=== PATIENT | male | born 1935 | race Caucasian/White ===

== ENCOUNTER → 2020-10-31 | Outpatient (CLI) | payer OTHER ==
--- NOTE | 2020-11-07 09:35 | ECHO ---
ECHOCARDIOGRAM DATE OF PROCEDURE: 10/31/2020 Age: 85 Gender: Male Height: Weight: REFERRING PHYSICIAN: DOMENICO Matias. REASON FOR STUDY: Valvular heart disease, mitral regurgitation. PATIENT LOCATION: Outpatient. 2D MEASUREMENTS: IVS 1.4 cm LV 4.8 cm LVPW 1.3 cm LA 3.4 cm Aorta 3.8 cm 2D COMMENTS: 1. Mildly increased left ventricular wall thickness with normal left ventricular size and normal global left ventricular systolic function. The estimated left ventricular systolic ejection fraction is 60% to 65%. 2. Subjectively, the left atrium and the right atrium appear to be mildly enlarged. Normal right ventricle. 3. The atrial septum appeared to be normal without evidence of defect or shunt. 4. Mildly dilated aortic root at 3.8 cm. 5. Mildly calcified aortic valve with normal leaflet excursion. Mildly calcified mitral annulus with normal anterior mitral valve leaflet motion. Normal tricuspid valve and pulmonic valve. The proximal pulmonary artery branches were not well visualized. 6. The inferior vena cava was not visualized. DOPPLER: Detects mild mitral regurgitation, trace tricuspid regurgitation, and trace pulmonic regurgitation. Pulmonary artery systolic pressure was normal. Assessment of the left ventricular diastolic function was limited in view of underlying atrial fibrillation. IMPRESSION: 1. Normal global left ventricular systolic function with mild concentric left ventricular hypertrophy and a normal global left ventricular systolic function. Assessment of the left ventricular diastolic function was limited in view of the underlying atrial fibrillation. 2. Aortic valve sclerosis without stenosis or aortic regurgitation. 3. Mitral annular calcification with mild mitral regurgitation. 4. Mild tricuspid regurgitation with a normal calculated pulmonary artery systolic pressure. 5. Mildly dilated aortic root at 3.8 cm. 0
== END ==
LOC: M CARPUL 13:04
PROVIDERS: ATTEND Nurse Practitioner Family
DX: I34.0 Nonrheumatic mitral (valve) insufficiency (principal); I36.1 Nonrheumatic tricuspid (valve) insufficiency

== ENCOUNTER → 2021-02-06 | Outpatient (CLI) | payer OTHER ==
[~2021-02-06] MED LIST: ATOR40TA75 PO; COLA100C5 PO; DIGO0.123 PO; ECOT81TA5 PO; ERYT2GEL OU; ISOS1TAB36 PO; K-TA10TA2 PO; LANTINJ4 SC; METO25TA4 PO; NITR0.4S14 SL; NOVOINJ SC; OMEP10CASR PO; PRESCAP PO; QUET50TA4 PO; THIA100TA PO; VITMTA PO
== END ==
LOC: M LABSMTC 11:53
PROVIDERS: ATTEND Anesthesiology
DX: Z01.812 Encounter for preprocedural laboratory examination (principal); Z20.822 Contact with and (suspected) exposure to COVID-19

== ENCOUNTER 2021-02-11 06:49 | Day surgery (SDC) | payer OTHER ==
[~2021-02-11] VITALS: Ht 172.7 cm; Wt 78.0 kg
[~2021-02-11 06:49] MED LIST changes: +NS 1,000 ML IV ONE
[2021-02-11] MEDS ORDERED: LIDOCAINE 2% 100MG/5ML SDV (FOR ANES.) As Ordered ONE (07:01)
[2021-02-11] MEDS ORDERED: propofoL 200 MG/20 ML VIAL As Ordered ONE (07:01)
--- NOTE | 2021-02-11 07:59 | ROOR ---
Patient Name: Ramsey Segovia Procedure Date: 02/11/2021 7:40 AM Date of : 1935 Age: 86 Room: [facility] Gender: Male Note Status: Finalized Procedure: Upper GI endoscopy Indications: Dysphagia Providers: DO Aliza Fox MD: Thu Mezaler Requesting Provider: Medicines: Propofol per Anesthesia Complications: No immediate complications. Procedure: Pre-Anesthesia Assessment: - Prior to the procedure, a History and Physical was performed, and patient medications and allergies were reviewed. The patient is competent. The risks and benefits of the procedure and the sedation options and risks were discussed with the patient. All questions were answered and informed consent was obtained. Patient identification and proposed procedure were verified by the physician, the nurse, the director of informatics and the mosaic technician in the endoscopy suite. Mental Status Examination: alert and oriented. Airway Examination: normal oropharyngeal airway and neck mobility. Respiratory Examination: clear to auscultation. CV Examination: normal. Prophylactic Antibiotics: The patient does not require prophylactic antibiotics. Prior Anticoagulants: The patient has taken no previous anticoagulant or antiplatelet agents. ASA Grade Assessment: II - A patient with mild systemic disease. After reviewing the risks and benefits, the patient was deemed in satisfactory condition to undergo the procedure. The anesthesia plan was to use monitored anesthesia care (MAC). Immediately prior to administration of medications, the patient was re-assessed for adequacy to receive sedatives. The heart rate, respiratory rate, oxygen saturations, blood pressure, adequacy of pulmonary ventilation, and response to care were monitored throughout the procedure. The physical status of the patient was re-assessed after the procedure. The Endoscope was introduced through the mouth, and advanced to the second part of duodenum. The upper GI endoscopy was accomplished without difficulty. The patient tolerated the procedure well. Findings: Diffuse mild inflammation characterized by congestion (edema), erosions, erythema, friability and granularity was found in the entire examined stomach. Biopsies were taken with a cold forceps for Helicobacter pylori testing. Estimated blood loss was minimal. Impression: - Gastritis. Biopsied. Recommendation: - Patient has a contact number available for emergencies. The signs and symptoms of potential delayed complications were discussed with the patient. Return to normal activities tomorrow. Written discharge instructions were provided to the patient. - Return to physician anesthesia assistant at appointment to be scheduled. - Await pathology results. Procedure Code(s): --- Professional --- 76011, Esophagogastroduodenoscopy, flexible, transoral; with biopsy, single or multiple Diagnosis Code(s): --- Professional --- K29.70, Gastritis, unspecified, without bleeding R13.10, Dysphagia, unspecified CPT copyright 2019 [employer]. All rights reserved. The codes documented in this report are preliminary and upon superintendent automotive review may be revised to meet current compliance requirements. Aaron Castellanos DO 02/11/2021 7:58:28 AM Electronically signed by Aaron Castellanos DO Number of Addenda: 0 Note Initiated On: 02/11/2021 7:40 AM Estimated Blood Loss: Estimated blood loss was minimal.
[2021-02-11 08:32] VITALS: BP 174/86
== END 2021-02-11 08:34 | disposition home or self-care (01) ==
LOC: M OPP 06:49
PROVIDERS: ATTEND Surgery
DX: K29.70 Gastritis, unspecified, without bleeding (principal); R13.10 Dysphagia, unspecified; R11.2 Nausea with vomiting, unspecified; E11.9 Type 2 diabetes mellitus without complications; D64.9 Anemia, unspecified; Z79.4 Long term (current) use of insulin; Z79.82 Long term (current) use of aspirin; Z79.899 Other long term (current) drug therapy; Z79.2 Long term (current) use of antibiotics; Z88.2 Allergy status to sulfonamides

== ENCOUNTER → 2022-01-26 | Outpatient (REF) | payer OTHER ==
[~2022-01-26] MED LIST changes: -NS 1,000 ML IV ONE
== END ==
LOC: M SFHCDERM 08:59
PROVIDERS: ATTEND Nurse Practitioner Family
DX: C44.319 Basal cell carcinoma of skin of other parts of face (principal); L57.0 Actinic keratosis

== ENCOUNTER → 2022-04-29 | Outpatient (REF) | payer OTHER | LOC: M SFHCDERM 14:15 | PROVIDERS: ATTEND Dermatology | DX: L57.8 Other skin changes due to chronic exposure to nonionizing radiation (principal) ==

== ENCOUNTER → 2022-11-18 | Outpatient (REF) | payer OTHER ==
[~2022-11-18] MED LIST changes: -K-TA10TA2 PO; +POTA-165 PO
== END ==
LOC: M SFHCDERM 17:34
PROVIDERS: ATTEND Physician Assistant
DX: C44.42 Squamous cell carcinoma of skin of scalp and neck (principal); D04.61 Carcinoma in situ of skin of right upper limb, including shoulder; C44.612 Basal cell carcinoma of skin of right upper limb, including shoulder

== ENCOUNTER → 2023-03-16 | Outpatient (REF) | payer OTHER | LOC: M SFHCWAGY 18:04 → M SFHCDERM 18:04 | PROVIDERS: ATTEND Physician Assistant | DX: C44.222 Squamous cell carcinoma of skin of right ear and external auricular canal (principal) ==